=== PATIENT | male | born 2000 | race African-American/Black ===

== ENCOUNTER 2022-03-21 15:29 | Emergency (ER) | payer OTHER, SELFPAY ==
[2022-03-21] MEDS ORDERED: Ketorolac Tromethamine 30 MG/ML VIAL ONE (16:07)
[2022-03-21] MEDS ORDERED: Acetaminophen 500 MG TAB ONE (16:07)
[2022-03-21] MEDS ORDERED: Prochlorperazine 10 MG/2 ML VIAL ONE (16:08)
== END 2022-03-21 16:58 | disposition home or self-care (01) ==
LOC: ERS 15:29
DX: R51.9 Headache, unspecified (principal); E86.0 Dehydration
CPT/HCPCS: 96372; 99283; J0780; J1885